=== PATIENT | male | born 1945 | race Native Hawaiian/Other Pacific Islander ===

== ENCOUNTER 2016-08-22 08:33 | Observation (INO) | payer OTHER ==
[~2016-08-22] VITALS: Ht 185.4 cm; Wt 97.6 kg
[2016-08-22] VITALS (8 sets, daily range): BP systolic 121–179; BP diastolic 76–102; TEMP 97.5–98; Ht 185.4 cm; Wt 97.6 kg
[2016-08-22 10:16] LABS: PLATELET COUNT 178 K/uL (142-355)
[2016-08-22 10:35] LABS: SODIUM 137 mmol/L (136-145)
[2016-08-22] MEDS ORDERED: MELOXICAM15 MG PO (14:25)
[2016-08-22] MEDS ORDERED: IRBESARTAN150 MG PO (14:25)
[2016-08-22] MEDS ORDERED: ASA LOW DOSE81 MG PO (14:25)
[2016-08-23 04:00] VITALS: BP 123/80; TEMP 98.3
[2016-08-23 04:56] LABS: PLATELET COUNT 179 K/uL (142-355)
[2016-08-23 05:22] LABS: POTASSIUM 3.8 mmol/L (3.6-5.2); SODIUM 136 mmol/L (136-145)
[2016-08-23 08:00] VITALS: BP 129/84; TEMP 97.7
== END 2016-08-23 12:10 | disposition home or self-care (01) ==
LOC: ED 08:33 → MED/SURG 10:53
PROVIDERS: Emergency Medicine; ADMIT Specialist
DX: G45.8 Other transient cerebral ischemic attacks and related syndromes (principal); I10 Essential (primary) hypertension; M15.8 Other polyosteoarthritis
CPT/HCPCS: 36415; 80048; 81000; 82550; 82553; 83090; 83735; 84100; 85027; 85651; 86039; 93005; 96372; 99220; 99284; G0378; J1650

== ENCOUNTER 2016-08-29 14:05 | Outpatient (CLI) | payer OTHER ==
[~2016-08-29 14:05] MED LIST: ASA LOW DOSE81 MG PO; IRBESARTAN150 MG PO; MELOXICAM15 MG PO
== END 2016-08-29 19:59 | disposition home or self-care (01) ==
LOC: RESP 14:05
DX: G45.9 Transient cerebral ischemic attack, unspecified (principal)
CPT/HCPCS: 93306

== ENCOUNTER 2016-09-02 08:50 | Outpatient (CLI) | payer OTHER | END 2016-09-02 19:33 | disposition home or self-care (01) | LOC: MRI 08:50 | DX: G45.9 Transient cerebral ischemic attack, unspecified (principal) | CPT/HCPCS: 93306 ==

== ENCOUNTER 2016-09-11 13:17 | Emergency (ER) | payer OTHER ==
[~2016-09-11] VITALS: Ht 185.4 cm; Wt 97.5 kg
[2016-09-11] MEDS ORDERED: LIPITOR10 MG PO (13:26)
[2016-09-11] MEDS ORDERED: CLOP75TA2 PO (13:26)
[2016-09-11 14:08] LABS: PLATELET COUNT 169 K/uL (142-355)
[2016-09-11 14:18] LABS: POTASSIUM 3.7 mmol/L (3.6-5.2); SODIUM 137 mmol/L (136-145)
[2016-09-11 16:54] VITALS: BP 131/98; TEMP 98
== END 2016-09-11 16:54 | disposition home or self-care (01) ==
LOC: ED 13:17
PROVIDERS: Specialist
DX: G45.8 Other transient cerebral ischemic attacks and related syndromes (principal)
CPT/HCPCS: 80053; 82550; 82553; 83735; 84100; 84484; 85027; 99283

== ENCOUNTER 2016-10-31 07:34 | Outpatient (CLI) | payer OTHER ==
[~2016-10-31 07:34] MED LIST changes: +CLOP75TA2 PO; +LIPITOR10 MG PO
[2016-10-31 08:23] LABS: POTASSIUM 3.9 mmol/L (3.6-5.2); SODIUM 139 mmol/L (136-145)
== END 2016-10-31 09:00 | disposition home or self-care (01) ==
LOC: LABW 07:34
PROVIDERS: Internal Medicine Cardiovascular Disease
DX: Z79.899 Other long term (current) drug therapy (principal)
CPT/HCPCS: 36415; 80048

== ENCOUNTER 2017-08-11 10:37 | Outpatient (CLI) | payer OTHER ==
[2017-08-11 10:55] LABS: PLATELET COUNT 191 K/uL (142-355)
[2017-08-11 11:21] LABS: POTASSIUM 3.9 mmol/L (3.6-5.2)
== END 2017-08-11 19:19 | disposition home or self-care (01) ==
LOC: LABW 10:37
PROVIDERS: Internal Medicine
DX: Z79.899 Other long term (current) drug therapy (principal); Z51.81 Encounter for therapeutic drug level monitoring; E78.4 Other hyperlipidemia
CPT/HCPCS: 36415; 80053; 80061; 81000; 85027

== ENCOUNTER 2018-07-27 08:13 | Outpatient (CLI) | payer OTHER ==
[2018-07-27 08:43] LABS: PLATELET COUNT 192 K/uL (142-355)
== END 2018-07-27 19:09 | disposition home or self-care (01) ==
LOC: LABW 08:13
PROVIDERS: Internal Medicine
DX: I10 Essential (primary) hypertension (principal); Z12.5 Encounter for screening for malignant neoplasm of prostate
CPT/HCPCS: 36415; 80053; 80061; 81000; 84153; 84439; 84443; 85027

== ENCOUNTER 2019-09-09 14:24 | Outpatient (CLI) | payer OTHER ==
[2019-09-09 14:38] LABS: PLATELET COUNT 178 K/uL (142-355)
[2019-09-09 15:07] LABS: POTASSIUM 3.7 mmol/L (3.6-5.2)
== END 2019-09-09 22:47 | disposition home or self-care (01) ==
LOC: LAB 14:24
PROVIDERS: Physician Assistant
DX: Z00.00 Encounter for general adult medical examination without abnormal findings (principal); I10 Essential (primary) hypertension; E55.9 Vitamin D deficiency, unspecified
CPT/HCPCS: 80053; 80061; 82306; 84154; 84439; 84443; 85027

== ENCOUNTER 2020-09-21 08:44 | Outpatient (CLI) | payer OTHER | END 2020-09-21 19:31 | disposition home or self-care (01) | LOC: CT 08:44 | PROVIDERS: ATTEND Internal Medicine | DX: Z12.2 Encounter for screening for malignant neoplasm of respiratory organs (principal) | CPT/HCPCS: G0297-TC ==

== ENCOUNTER 2020-11-22 12:36 | Day surgery (SDC) | payer OTHER ==
[2020-11-16 09:37] LABS: PLATELET COUNT 151 K/uL (142-355)
[2020-11-16 09:47] LABS: POTASSIUM 3.8 mmol/L (3.6-5.2)
== END 2020-11-22 16:15 | disposition home or self-care (01) ==
LOC: OR 12:36
PROVIDERS: ATTEND Internal Medicine Gastroenterology
PROC: 0DBK8ZZ Excision of Ascending Colon, Via Natural or Artificial Opening Endoscopic (ICD-10-PCS; principal; 2020-11-22)
DX: D12.2 Benign neoplasm of ascending colon (principal); K57.30 Diverticulosis of large intestine without perforation or abscess without bleeding; K64.8 Other hemorrhoids; Z86.010 Personal history of colon polyps; Z12.11 Encounter for screening for malignant neoplasm of colon; Z20.822 Contact with and (suspected) exposure to COVID-19
CPT/HCPCS: 80053; 85027; 87635; J2704; U0003

== ENCOUNTER 2022-03-22 08:14 | Outpatient (CLI) | payer OTHER | END 2022-03-22 21:27 | disposition home or self-care (01) | LOC: LABW 08:14 | PROVIDERS: ATTEND Podiatrist | DX: B35.1 Tinea unguium (principal) | CPT/HCPCS: 36415; 84450; 84460 ==